=== PATIENT | male | born 1930 | race Caucasian/White ===

== ENCOUNTER 2017-12-11 17:54 | Inpatient (IN) | payer OTHER ==
[~2017-12-11] VITALS: Ht 172.7 cm; Wt 58.2 kg
[~2017-12-11 17:54] MED LIST: AMLODIPINE BESYL5 MG PO; ASPIRIN325 MG PO; CARDIZEM CD,CA240 MG PO; CARTIA XT240 MG PO; Cardizem CD,LA,Cartia,Tiazac,Dilacor,Taztia PO; DUONEB 2.5-0.5 M3 ML AEROSOL; ELIQUIS2.5 MG PO; LEVAQUIN500 MG PO; LORAZEPAM0.5 MG PO; NEOSPORIN + P28.3 GM TP; PERCOCET 5/31 TABLET PO; PREDNISONE10 MG PO; PRILOSEC20 MG PO; PROVENTIL,2.5 MG/3 M IH; SALINE NASAL SP45 ML BOTH NARES; SPIRIVA1 INHALATI IH; ST. JOSEPH ASPI81 MG PO; SYMBICORT60 INHALAT IH; THEOPHYLLINE A200 M1 PO; VENTOLIN HFA18 GM IH
[2017-12-11 19:23] LABS: BASOPHIL (%) 0.2 % (0-1); EOSINOPHIL (%) 3.4 % (0-5); EOSINOPHIL COUNT 0.3 K/uL (0-0.3); HEMATOCRIT 29.2 % (38.0-50.0); HEMOGLOBIN 9.2 G/DL (12.5-16.6); IMMATURE GRANULOCYTE (%) 0.1 % (0.0-0.7); LYMPHOCYTE (%) 17.2 % (15-42); LYMPHOCYTE COUNT 1.4 K/uL (1.0-2.8); MCH 28.1 PG (29.0-34.0); MCHC 31.5 G/DL (30.0-36.0); MCV 89.3 FL (86-99); MONOCYTE (%) 11.5 % (3-12); MONOCYTE COUNT 0.9 K/uL (0-0.8); NEUTROPHIL (%) 67.6 % (45-76); NEUTROPHIL COUNT 5.5 K/uL (1.8-6.4); PLATELET COUNT 126 K/uL (156-360); RBC DIS.WIDTH-CV 12.5 % (11.8-14.6); RBC DIS.WIDTH-SD 40.9 % (39-53); RED BLOOD COUNT 3.27 M/uL (4.00-5.50); WHITE BLOOD COUNT 8.2 K/uL (4.1-10.2)
[2017-12-11 19:32] LABS: CHLORIDE 95 mEq/L (99-109); MAGNESIUM 1.9 mg/dL (1.3-2.7); POTASSIUM 4.9 mEq/L (3.7-5.4); SODIUM 139 mEq/L (136-147)
[2017-12-11 19:34] LABS: GLUCOSE 104 mg/dL (70-99)
[2017-12-11 19:37] LABS: CREATININE 0.7 mg/dL (0.6-1.3); GFR ESTIMATE (CALCULATED) > 59 mL/min/ (58.99-99999)
[2017-12-11 19:38] LABS: UREA NITROGEN (BUN) 11 mg/dL (9-23)
[2017-12-11 19:44] LABS: TROP-I INTERPRETATION NEGATIVE; TROPONIN-I 0.01 ng/mL (0.0-0.30)
[2017-12-12] MEDS ORDERED: CARDIZEM CD,CA240 MG PO (00:09)
[2017-12-12] MEDS ORDERED: ATROVENT 00.5 MG/2.5 IH (00:11)
[2017-12-12] MEDS ORDERED: ALBUTEROL2.5 MG/3 M IH (00:12)
[2017-12-12] MEDS ORDERED: FLONASE16 G1 BOTH NARES (00:12)
[2017-12-12 02:44] VITALS: BP 135/73
[2017-12-12 06:18] LABS: HEMOGLOBIN 9.5 G/DL (12.5-16.6); MCH 27.4 PG (29.0-34.0); MCHC 30.6 G/DL (30.0-36.0); MCV 89.3 FL (86-99); PLATELET COUNT 126 K/uL (156-360); RBC DIS.WIDTH-CV 12.5 % (11.8-14.6); RBC DIS.WIDTH-SD 41.1 % (39-53); RED BLOOD COUNT 3.47 M/uL (4.00-5.50); WHITE BLOOD COUNT 4.8 K/uL (4.1-10.2)
[2017-12-12 06:42] LABS: CHLORIDE 94 MEQ/L (99-109); CREATININE 0.8 MG/DL (0.6-1.3); GFR ESTIMATE (CALCULATED) > 59 mL/min/ (58.99-99999); POTASSIUM 4.2 MEQ/L (3.7-5.4); SODIUM 136 MEQ/L (136-147); UREA NITROGEN (BUN) 11 mg/dL (9-23)
[2017-12-12 06:47] LABS: GLUCOSE 175 mg/dL (70-99)
[2017-12-12 07:06] VITALS: BP 110/59
[2017-12-12 11:02] VITALS: BP 124/60
[2017-12-12 15:45] VITALS: BP 141/65
[2017-12-12 20:18] VITALS: BP 141/79
[2017-12-13 00:22] VITALS: BP 158/72
[2017-12-13 04:00] VITALS: BP 152/70
[2017-12-13 06:46] LABS: BASOPHIL (%) 0 % (0-1); EOSINOPHIL (%) 0 % (0-5); HEMOGLOBIN 8.6 G/DL (12.5-16.6); IMMATURE GRANULOCYTE (%) 0.3 % (0.0-0.7); LYMPHOCYTE (%) 6.2 % (15-42); LYMPHOCYTE COUNT 0.7 K/uL (1.0-2.8); MCH 27.7 PG (29.0-34.0); MCHC 31.9 G/DL (30.0-36.0); MCV 87.1 FL (86-99); MONOCYTE (%) 3.5 % (3-12); MONOCYTE COUNT 0.4 K/uL (0-0.8); NEUTROPHIL COUNT 9.7 K/uL (1.8-6.4); PLATELET COUNT 123 K/uL (156-360); RBC DIS.WIDTH-CV 12.7 % (11.8-14.6); RBC DIS.WIDTH-SD 40.3 % (39-53); WHITE BLOOD COUNT 10.8 K/uL (4.1-10.2)
[2017-12-13 06:50] VITALS: BP 112/61
[2017-12-13 07:10] LABS: CHLORIDE 91 MEQ/L (99-109); CREATININE 0.8 MG/DL (0.6-1.3); GFR ESTIMATE (CALCULATED) > 59 mL/min/ (58.99-99999); GLUCOSE 125 mg/dL (70-99); POTASSIUM 4.8 MEQ/L (3.7-5.4); SODIUM 133 MEQ/L (136-147); UREA NITROGEN (BUN) 20 mg/dL (9-23)
[2017-12-13 11:00] VITALS: BP 147/67
[2017-12-13 16:07] VITALS: BP 119/58
[2017-12-13 20:03] VITALS: BP 142/70
[2017-12-14 04:09] VITALS: BP 154/70
[2017-12-14 06:24] LABS: BASOPHIL (%) 0.1 % (0-1); EOSINOPHIL (%) 0 % (0-5); HEMATOCRIT 29.4 % (38.0-50.0); HEMOGLOBIN 9.2 G/DL (12.5-16.6); IMMATURE GRANULOCYTE (%) 0.7 % (0.0-0.7); LYMPHOCYTE (%) 3.8 % (15-42); LYMPHOCYTE COUNT 0.5 K/uL (1.0-2.8); MCH 27.3 PG (29.0-34.0); MCHC 31.3 G/DL (30.0-36.0); MCV 87.2 FL (86-99); MONOCYTE (%) 2.8 % (3-12); MONOCYTE COUNT 0.4 K/uL (0-0.8); NEUTROPHIL (%) 92.6 % (45-76); NEUTROPHIL COUNT 12.5 K/uL (1.8-6.4); PLATELET COUNT 137 K/uL (156-360); RBC DIS.WIDTH-CV 12.6 % (11.8-14.6); RBC DIS.WIDTH-SD 40.4 % (39-53); RED BLOOD COUNT 3.37 M/uL (4.00-5.50); WHITE BLOOD COUNT 13.5 K/uL (4.1-10.2)
[2017-12-14 06:43] LABS: CHLORIDE 96 MEQ/L (99-109); CREATININE 0.9 MG/DL (0.6-1.3); GFR ESTIMATE (CALCULATED) > 59 mL/min/ (58.99-99999); GLUCOSE 121 mg/dL (70-99); POTASSIUM 4.6 MEQ/L (3.7-5.4); SODIUM 138 MEQ/L (136-147); UREA NITROGEN (BUN) 23 mg/dL (9-23)
[2017-12-14 07:00] VITALS: BP 138/71
[2017-12-14 11:10] VITALS: BP 154/74
[2017-12-14 17:28] VITALS: BP 130/80
[2017-12-14 19:57] VITALS: BP 154/74
[2017-12-14 22:49] VITALS: BP 142/65
[2017-12-15 04:06] VITALS: BP 142/67
[2017-12-15 06:50] VITALS: BP 128/65
[2017-12-15] MEDS ORDERED: ELIQUIS2.5 MG PO (10:36)
[2017-12-15] MEDS ORDERED: GABAPENTIN100 MG PO (10:37)
[2017-12-15] MEDS ORDERED: PREDNISONE10 MG PO (10:38)
== END 2017-12-15 13:28 | disposition home health service (06) | DRG 191 ==
LOC: EME 17:54 → 5EAST 12-12 01:04 → EDOF 12-12 01:04 → ENRESERV 12-12 01:21 → 5EAST 12-12 02:27
PROVIDERS: Emergency Medicine; Internal Medicine; Nurse Practitioner Adult Health
DX: J44.1 Chronic obstructive pulmonary disease with (acute) exacerbation (principal); I48.0 Paroxysmal atrial fibrillation; G62.9 Polyneuropathy, unspecified; G89.29 Other chronic pain; Z99.81 Dependence on supplemental oxygen; D69.6 Thrombocytopenia, unspecified; R64 Cachexia; Z68.1 Body mass index [BMI] 19.9 or less, adult; D64.9 Anemia, unspecified; I10 Essential (primary) hypertension; R26.2 Difficulty in walking, not elsewhere classified; I25.10 Atherosclerotic heart disease of native coronary artery without angina pectoris; K21.9 Gastro-esophageal reflux disease without esophagitis; Z87.891 Personal history of nicotine dependence; Z60.2 Problems related to living alone; Z79.51 Long term (current) use of inhaled steroids
CPT/HCPCS: 71046; 80048; 83735; 84484; 85025; 85027; 85610; 85730; 93005; 94640; 94640 76; 94664; 94799; 99202; 99281; 99285; J1650; J2920; J2930

== ENCOUNTER 2017-12-29 15:08 | Inpatient (IN) | payer OTHER ==
[~2017-12-29] VITALS: Ht 172.7 cm; Wt 63.9 kg
[~2017-12-29 15:08] MED LIST changes: +ALBUTEROL2.5 MG/3 M IH; +ATROVENT 00.5 MG/2.5 IH; +CARDIZEM CD,CA180 MG PO; +FLONASE16 G1 BOTH NARES; +GABAPENTIN100 MG PO
[2017-12-29 15:47] LABS: HEMATOCRIT 28.5 % (38.0-50.0); HEMOGLOBIN 9.1 G/DL (12.5-16.6); MCH 27.8 PG (29.0-34.0); MCHC 31.9 G/DL (30.0-36.0); MCV 87.2 FL (86-99); PLATELET COUNT 113 K/uL (156-360); RBC DIS.WIDTH-CV 13.6 % (11.8-14.6); RBC DIS.WIDTH-SD 43.2 % (39-53); RED BLOOD COUNT 3.27 M/uL (4.00-5.50); WHITE BLOOD COUNT 9.9 K/uL (4.1-10.2)
[2017-12-29 15:56] LABS: ALBUMIN 3.6 g/dL (3.2-4.8); CHLORIDE 92 mEq/L (99-109); PTT 25.8 SEC (25-37); SODIUM 134 mEq/L (136-147)
[2017-12-29 15:58] LABS: GLUCOSE 117 mg/dL (70-99); TOTAL PROTEIN 5.9 g/dL (6.4-8.3)
[2017-12-29 16:00] LABS: TOTAL BILIRUBIN 0.3 mg/dL (0.0-1.0)
[2017-12-29 16:02] LABS: ALKALINE PHOSPHATASE 63 IU/L (3-129); CREATININE 0.7 mg/dL (0.6-1.3); GFR ESTIMATE (CALCULATED) > 59 mL/min/ (58.99-99999)
[2017-12-29 16:03] LABS: AST (GOT) 19 IU/L (2-34); UREA NITROGEN (BUN) 20 mg/dL (9-23)
[2017-12-29 16:04] LABS: DIRECT BILIRUBIN 0.1 mg/dL (0.0-0.3)
[2017-12-29 16:05] LABS: ALT (GPT) 16 IU/L (3-49); LIPASE 36 U/L (1.0-51.0)
[2017-12-29 16:13] LABS: TROP-I INTERPRETATION NEGATIVE; TROPONIN-I < 0.01 ng/mL (0.0-0.30)
[2017-12-29 16:54] LABS: FERRITIN 43 NG/ML (22-322)
[2017-12-29] MEDS ORDERED: NEURONTIN100 MG PO (17:44)
[2017-12-29] MEDS ORDERED: MYCOSTATIN 100,60 ML PO (17:45)
[2017-12-29] MEDS ORDERED: DAILY VITE1 EAC1 PO (17:46)
[2017-12-29] MEDS ORDERED: ALEVE220 MG PO (17:46)
[2017-12-29 18:16] LABS: TRANSFERRIN (TIBC) 276.5 mg/dL (215-380)
[2017-12-29 21:56] VITALS: BP 151/65
[2017-12-29 23:50] VITALS: BP 119/58
[2017-12-30 04:47] VITALS: BP 116/54
[2017-12-30 07:25] VITALS: BP 146/67
[2017-12-30 11:42] VITALS: BP 163/77
[2017-12-30 14:17] LABS: TROP-I INTERPRETATION NEGATIVE; TROPONIN-I 0.01 ng/mL (0.0-0.30)
[2017-12-30 15:37] VITALS: BP 157/74
[2017-12-30 19:19] VITALS: BP 167/77
[2017-12-30 23:49] VITALS: BP 163/73
[2017-12-31 04:00] VITALS: BP 150/70
[2017-12-31 07:41] VITALS: BP 122/73
[2017-12-31 11:25] VITALS: BP 137/63
[2017-12-31] MEDS ORDERED: CEFEPIME HCL1 GM IV (14:16)
[2017-12-31] MEDS ORDERED: AZITHROMYCIN500 M1 PO (14:16)
[2017-12-31] MEDS ORDERED: TYLENOL REGULA325 MG PO (14:17)
[2017-12-31 15:31] VITALS: BP 129/63
[2017-12-31 18:47] LABS: HEMATOCRIT 28.8 % (38.0-50.0); MCHC 31.3 G/DL (30.0-36.0); MCV 86.5 FL (86-99); RBC DIS.WIDTH-CV 13.8 % (11.8-14.6); RBC DIS.WIDTH-SD 43.1 % (39-53); RED BLOOD COUNT 3.33 M/uL (4.00-5.50); WHITE BLOOD COUNT 13.9 K/uL (4.1-10.2)
[2017-12-31 19:22] LABS: PLATELET COUNT 154 K/uL (156-360)
[2017-12-31 20:03] VITALS: BP 137/70
[2017-12-31 23:43] VITALS: BP 164/82
[2018-01-01 04:48] VITALS: BP 164/77
[2018-01-01 06:13] LABS: HEMATOCRIT 24.9 % (38.0-50.0); HEMOGLOBIN 7.9 G/DL (12.5-16.6); MCH 27.1 PG (29.0-34.0); MCHC 31.7 G/DL (30.0-36.0); MCV 85.6 FL (86-99); PLATELET COUNT 129 K/uL (156-360); RBC DIS.WIDTH-CV 13.9 % (11.8-14.6); RBC DIS.WIDTH-SD 42.9 % (39-53); RED BLOOD COUNT 2.91 M/uL (4.00-5.50); WHITE BLOOD COUNT 10.7 K/uL (4.1-10.2)
[2018-01-01 06:38] LABS: CHLORIDE 94 MEQ/L (99-109); CREATININE 0.7 MG/DL (0.6-1.3); GFR ESTIMATE (CALCULATED) > 59 mL/min/ (58.99-99999); GLUCOSE 130 mg/dL (70-99); POTASSIUM 4.2 MEQ/L (3.7-5.4); SODIUM 136 MEQ/L (136-147); UREA NITROGEN (BUN) 26 mg/dL (9-23)
[2018-01-01 07:28] VITALS: BP 122/65
[2018-01-01 10:17] VITALS: BP 162/89
[2018-01-01 16:22] VITALS: BP 155/81
[2018-01-01 19:59] VITALS: BP 169/88
[2018-01-01 23:52] VITALS: BP 133/70
[2018-01-02 05:10] VITALS: BP 163/85
[2018-01-02 07:43] VITALS: BP 158/79
== END 2018-01-02 11:59 | DRG 190 ==
LOC: EME 15:08 → 3EAST 17:48 → EDOF 17:48 → ENRESERV 17:50 → 3EAST 20:58
PROVIDERS: Emergency Medicine; Family Medicine; Internal Medicine; Internal Medicine Cardiovascular Disease
DX: J44.1 Chronic obstructive pulmonary disease with (acute) exacerbation (principal); J44.0 Chronic obstructive pulmonary disease with (acute) lower respiratory infection; J18.9 Pneumonia, unspecified organism; J20.9 Acute bronchitis, unspecified; K92.1 Melena; T45.515A Adverse effect of anticoagulants, initial encounter; K21.9 Gastro-esophageal reflux disease without esophagitis; I10 Essential (primary) hypertension; I48.0 Paroxysmal atrial fibrillation; E78.5 Hyperlipidemia, unspecified; F17.200 Nicotine dependence, unspecified, uncomplicated; Z79.01 Long term (current) use of anticoagulants; Z91.040 Latex allergy status; Z99.81 Dependence on supplemental oxygen
CPT/HCPCS: 71045; 80048; 80053; 82248; 82550; 82728; 82746; 83690; 84466; 84484; 85027; 85610; 85730; 93005; 94640; 94799; 99281; 99285; J0692; J1644; J2930; J7512

== ENCOUNTER 2018-01-17 11:40 | Inpatient (IN) | payer OTHER ==
[~2018-01-17] VITALS: Ht 167.6 cm; Wt 59.4 kg
[~2018-01-17 11:40] MED LIST changes: +ALEVE220 MG PO; +AZITHROMYCIN500 M1 PO; +CEFEPIME HCL1 GM IV; +DAILY VITE1 EAC1 PO; +MYCOSTATIN 100,60 ML PO; +NEURONTIN100 MG PO; +TYLENOL REGULA325 MG PO
[2018-01-17 12:32] LABS: HEMATOCRIT 25.2 % (38.0-50.0); HEMOGLOBIN 8.5 G/DL (12.5-16.6); MCH 27.2 PG (29.0-34.0); MCHC 33.7 G/DL (30.0-36.0); MCV 80.5 FL (86-99); PLATELET COUNT 153 K/uL (156-360); RBC DIS.WIDTH-CV 13.7 % (11.8-14.6); RBC DIS.WIDTH-SD 40.2 % (39-53); RED BLOOD COUNT 3.13 M/uL (4.00-5.50); WHITE BLOOD COUNT 9.5 K/uL (4.1-10.2)
[2018-01-17 12:39] LABS: ALBUMIN 3.8 g/dL (3.2-4.8)
[2018-01-17 12:40] LABS: CHLORIDE 67 mEq/L (99-109); POTASSIUM 2.7 mEq/L (3.7-5.4); SODIUM 123 mEq/L (136-147)
[2018-01-17 12:42] LABS: GLUCOSE 108 mg/dL (70-99); TOTAL PROTEIN 5.9 g/dL (6.4-8.3)
[2018-01-17 12:44] LABS: TOTAL BILIRUBIN 0.6 mg/dL (0.0-1.0)
[2018-01-17 12:45] LABS: ALKALINE PHOSPHATASE 68 IU/L (3-129)
[2018-01-17 12:46] LABS: CREATININE 0.8 mg/dL (0.6-1.3); GFR ESTIMATE (CALCULATED) > 59 mL/min/ (58.99-99999)
[2018-01-17 12:47] LABS: AST (GOT) 27 IU/L (2-34); UREA NITROGEN (BUN) 15 mg/dL (9-23)
[2018-01-17 12:49] LABS: ALT (GPT) 35 IU/L (3-49); CARBON DIOXIDE (BICARBONATE) > 40.0 mEq/L (20-31)
[2018-01-17] MEDS ORDERED: CYANOCOBALAM1000 MCG PO (15:20)
[2018-01-17] MEDS ORDERED: FERROUS SULFAT325 MG PO (15:21)
[2018-01-17] MEDS ORDERED: INCRUSE ELLI62.5 MCG IH (15:22)
[2018-01-17] MEDS ORDERED: LASIX20 MG PO (15:23)
[2018-01-17] MEDS ORDERED: LASIX40 MG PO (15:23)
[2018-01-17] MEDS ORDERED: METOLAZONE2.5 MG PO (15:23)
[2018-01-17] MEDS ORDERED: ONE DAILY1 EAC3 PO (15:24)
[2018-01-17] MEDS ORDERED: OMEPRAZOLE20 M4 PO (15:25)
[2018-01-17] MEDS ORDERED: DELTASONE20 M1 PO (15:26)
[2018-01-17] MEDS ORDERED: DULERA 200 MCG/13 GM IH (15:28)
[2018-01-17] MEDS ORDERED: ATROVENT 00.5 MG/2.5 IH (15:29)
[2018-01-17] MEDS ORDERED: SODIUM CHLORIDE1 G1 PO (15:29)
[2018-01-17] MEDS ORDERED: ENSURE113 GM PO (15:30)
[2018-01-17] MEDS ORDERED: XOPENEX0.63 MG/3 IH (15:31)
[2018-01-17] MEDS ORDERED: IPRATR-ALBUTEROL3 ML IH (15:32)
[2018-01-17 18:20] VITALS: BP 146/80
[2018-01-17 19:03] VITALS: BP 126/62
[2018-01-17 23:42] VITALS: BP 130/58
[2018-01-18] VITALS (10 sets, daily range): BP systolic 128–152; BP diastolic 62–81
[2018-01-18 06:32] LABS: BASOPHIL (%) 0.1 % (0-1); EOSINOPHIL (%) 0 % (0-5); HEMOGLOBIN 9.5 G/DL (12.5-16.6); IMMATURE GRANULOCYTE (%) 0.6 % (0.0-0.7); LYMPHOCYTE (%) 0.9 % (15-42); LYMPHOCYTE COUNT 0.1 K/uL (1.0-2.8); MCH 27.5 PG (29.0-34.0); MCHC 32.8 G/DL (30.0-36.0); MCV 84.1 FL (86-99); MONOCYTE COUNT 0.1 K/uL (0-0.8); NEUTROPHIL (%) 97.4 % (45-76); NEUTROPHIL COUNT 9.8 K/uL (1.8-6.4); PLATELET COUNT 137 K/uL (156-360); RBC DIS.WIDTH-CV 14.1 % (11.8-14.6); RBC DIS.WIDTH-SD 43.3 % (39-53); RED BLOOD COUNT 3.45 M/uL (4.00-5.50)
[2018-01-18 07:01] LABS: ALBUMIN 3.5 G/DL (3.2-4.8); ALKALINE PHOSPHATASE 57 IU/L (3-129); ALT (GPT) 30 IU/L (3-49); AST (GOT) 22 IU/L (2-34); CREATININE 0.6 MG/DL (0.6-1.3); GFR ESTIMATE (CALCULATED) > 59 mL/min/ (58.99-99999); SODIUM 126 MEQ/L (136-147); TOTAL PROTEIN 5.3 G/DL (6.4-8.3); UREA NITROGEN (BUN) 14 mg/dL (9-23)
[2018-01-18 07:02] LABS: CARBON DIOXIDE (BICARBONATE) > 40.0 MEQ/L (20-31); CHLORIDE 76 MEQ/L (99-109); GLUCOSE 164 mg/dL (70-99); POTASSIUM 3.3 MEQ/L (3.7-5.4); TOTAL BILIRUBIN 0.7 MG/DL (0.0-1.0)
[2018-01-19 03:56] VITALS: BP 140/74
[2018-01-19 06:23] LABS: HEMATOCRIT 29.5 % (38.0-50.0); HEMOGLOBIN 9.3 G/DL (12.5-16.6); MCH 26.7 PG (29.0-34.0); MCHC 31.5 G/DL (30.0-36.0); MCV 84.8 FL (86-99); PLATELET COUNT 142 K/uL (156-360); RBC DIS.WIDTH-CV 13.8 % (11.8-14.6); RBC DIS.WIDTH-SD 43.4 % (39-53); RED BLOOD COUNT 3.48 M/uL (4.00-5.50); WHITE BLOOD COUNT 11.7 K/uL (4.1-10.2)
[2018-01-19 06:38] LABS: ALBUMIN 3.7 G/DL (3.2-4.8); ALKALINE PHOSPHATASE 60 IU/L (3-129); ALT (GPT) 30 IU/L (3-49); AST (GOT) 21 IU/L (2-34); CHLORIDE 78 MEQ/L (99-109); CREATININE 0.6 MG/DL (0.6-1.3); GFR ESTIMATE (CALCULATED) > 59 mL/min/ (58.99-99999); GLUCOSE 139 mg/dL (70-99); SODIUM 127 MEQ/L (136-147); TOTAL BILIRUBIN 0.6 MG/DL (0.0-1.0); TOTAL PROTEIN 5.3 G/DL (6.4-8.3); UREA NITROGEN (BUN) 18 mg/dL (9-23)
[2018-01-19 06:39] LABS: CARBON DIOXIDE (BICARBONATE) > 40.0 MEQ/L (20-31); POTASSIUM 4.1 MEQ/L (3.7-5.4)
[2018-01-19 07:26] VITALS: BP 189/89
[2018-01-19 11:06] VITALS: BP 124/62
[2018-01-19 15:25] VITALS: BP 130/60
[2018-01-19 19:19] VITALS: BP 139/63
[2018-01-19 23:44] VITALS: BP 154/70
[2018-01-20] VITALS (10 sets, daily range): BP systolic 108–181; BP diastolic 57–85
[2018-01-20 09:55] LABS: CHLORIDE 81 MEQ/L (99-109); CREATININE 0.6 MG/DL (0.6-1.3); GFR ESTIMATE (CALCULATED) > 59 mL/min/ (58.99-99999); GLUCOSE 153 mg/dL (70-99); SODIUM 125 MEQ/L (136-147); UREA NITROGEN (BUN) 24 mg/dL (9-23)
[2018-01-20 10:00] LABS: POTASSIUM 5.1 MEQ/L (3.7-5.4)
[2018-01-20 10:01] LABS: CARBON DIOXIDE (BICARBONATE) > 40.0 MEQ/L (20-31)
[2018-01-20 13:37] LABS: COMMENTS - BLOOD GASES A+C+; SITE LR
[2018-01-20 13:38] LABS: BICARBONATE 50.1 mEq/L (22-26); CARBOXY HGB 1.8 % (0-5); DEVICE NC; METHEMOGLOBIN 0.7 % (0-1.5); O2 FLOW 2 L/MIN; PCO2 109 mm Hg (35-45); PO2 103 mm Hg (80-100); TOTAL RESP RATE 22 resp/min
[2018-01-20 13:39] LABS: pH 7.27 (7.35-7.45)
[2018-01-20 18:35] LABS: COMMENTS - BLOOD GASES A+C+; CONTINUOUS POS AIRWAY PRESSURE 5 cm H2O; DEVICE NIV; FI02 30 %; PRES. SUPPORT 12 CM/H2O; SITE RR; TOTAL RESP RATE 23 resp/min
[2018-01-20 18:36] LABS: BASE EXCESS 23.1 mEq/L (-3 to +3); BICARBONATE 52.1 mEq/L (22-26); CARBOXY HGB 1.9 % (0-5); O2 SATURATION (CALCULATED) 94.1 % (95-99); PCO2 88 mm Hg (35-45); PO2 74 mm Hg (80-100); pH 7.38 (7.35-7.45)
[2018-01-20 19:39] LABS: POTASSIUM 5.9 mEq/L (3.7-5.4); SODIUM 128 mEq/L (136-147)
[2018-01-20 19:40] LABS: MAGNESIUM 2.5 mg/dL (1.3-2.7)
[2018-01-20 19:41] LABS: CHLORIDE 76 mEq/L (99-109); GLUCOSE 121 mg/dL (70-99)
[2018-01-20 19:45] LABS: CREATININE 0.7 mg/dL (0.6-1.3); GFR ESTIMATE (CALCULATED) > 59 mL/min/ (58.99-99999); PHOSPHORUS 2.8 mg/dL (2.5-4.9)
[2018-01-20 19:46] LABS: UREA NITROGEN (BUN) 23 mg/dL (9-23)
[2018-01-20 19:52] LABS: CARBON DIOXIDE (BICARBONATE) > 40.0 mEq/L (20-31)
[2018-01-21 01:00] VITALS: BP 150/67
== END 2018-01-21 06:01 | DRG 193 ==
LOC: EME 11:40 → 3EAST 15:55 → 4WEST 15:55 → EDOF 15:55 → ENRESERV 15:59 → 3EAST 17:58 → 4WEST 01-20 15:58 → ENRESERV 01-20 15:59 → 4WEST 01-20 16:03 → ENRESERV 01-20 17:21 → CANRESERV 01-20 17:21 → ENRESERV 01-20 17:58 → 5EAST 01-21 00:54
PROVIDERS: Internal Medicine; Internal Medicine Nephrology; Internal Medicine Pulmonary Disease
PROC: 30233N1 Transfusion of Nonautologous Red Blood Cells into Peripheral Vein, Percutaneous Approach (ICD-10-PCS; principal; 2018-01-18)
PROC: 5A09357 Assistance with Respiratory Ventilation, Less than 24 Consecutive Hours, Continuous Positive Airway Pressure (ICD-10-PCS; 2018-01-20)
DX: J18.9 Pneumonia, unspecified organism (principal); Y95 Nosocomial condition; J44.0 Chronic obstructive pulmonary disease with (acute) lower respiratory infection; J44.1 Chronic obstructive pulmonary disease with (acute) exacerbation; E87.1 Hypo-osmolality and hyponatremia; E86.1 Hypovolemia; E87.6 Hypokalemia; J96.22 Acute and chronic respiratory failure with hypercapnia; J96.21 Acute and chronic respiratory failure with hypoxia; Z51.5 Encounter for palliative care; Z66 Do not resuscitate; D64.9 Anemia, unspecified; E46 Unspecified protein-calorie malnutrition; I11.0 Hypertensive heart disease with heart failure; I50.9 Heart failure, unspecified; I25.5 Ischemic cardiomyopathy; I48.2 Chronic atrial fibrillation; I27.20 Pulmonary hypertension, unspecified; D69.6 Thrombocytopenia, unspecified; K21.9 Gastro-esophageal reflux disease without esophagitis; I08.1 Rheumatic disorders of both mitral and tricuspid valves; E87.4 Mixed disorder of acid-base balance; Z91.040 Latex allergy status; Z87.891 Personal history of nicotine dependence; Z99.81 Dependence on supplemental oxygen
CPT/HCPCS: 36600; 71045; 80048; 80048 91; 80053; 81003; 82948; 83540; 83735; 83935; 84100; 84300; 84443; 84466; 84550; 85025; 85027; 86850; 86900; 86901; 86920; 87641; 93005; 93306; 94002; 94640; 94799; 99281; 99284; J0456; J0692; J1120; J1644; J1940; J2405; J2920; J2930; J3480; J7030; J7512; P9016